=== PATIENT | female | born 1970 | race Caucasian/White ===

== ENCOUNTER → 2019-01-23 | Outpatient (CLI) | payer MEDICAID ==
[2019-01-23 14:27] LABS: CHOLESTEROL 202 mg/dL (<200); HDL CHOLESTEROL 88 mg/dL (>40); LDL CHOLESTEROL 94 mg/dL (<100); TC:HDL 2.3 Ratio (Not establshd); TRIGLYCERIDE 100 mg/dL (<150); VLDL 20 mg/dL (<40)
[2019-01-23 14:31] LABS: SERUM ASSESSMENT Clear
--- NOTE | 2019-01-23 17:09 | EXE ---
[place] [address] STRESS ECHOCARDIOGRAM Name: ABEBA ROCK Room: [facility]#: [id number] Admission: 01/23/19 Attend Phys: Georges Santos, Discharge: Date of : 70 Date of Service: 01/23/19 1709 Report #: [id number] THIS REPORT FOR: //name// APPROVED REPORT Study performed: 01/23/2019 16:00:47 Exam: Dobutamine Stress Echo Indication: Chest pain , Dyspnea Patient Location: Out-Patient Stress Nurse: Liza Ramos RN Supervising Physician: Trung Vivar MD Ht: 5 ft 3 in HR: 72 bpm BP: 110/62 mmHg Medical History Cardiac Risk Factors: Tobacco History (Former), FHX of CAD Procedure The patient underwent a Pharmacological Stress Test using Dobutamine. Blood pressure, heart rate, and EKG were monitored. An Echocardiogram was performed by air launch weapons technician in four stages in quad fashion. At peak stress, four selected images were obtained and placed side by side with resting images for comparison. Stress Test Details Stress Test: Pharmacological Stress Test using Dobutamine. Reason for pharmacologic stress test: physical limitation. HR Resting HR: 72 bpm Max Heart Rate (APMHR): 172 bpm Max HR Achieved: 150 bpm Target HR (85% APMHR): 146 bpm % of APMHR: 87 Recovery HR: 77 bpm HR response to stress: Normal HR response to stress BP Resting BP: 110/62 mmHg Max BP: 148/66 mmHg Recovery BP: 104/69 mmHg BP response to stress: Normal blood pressure response [place] [address] STRESS ECHOCARDIOGRAM Name: SHWETAABEBA Ramirez Room: [facility]#: [id number] Admission: 01/23/19 Attend Phys: Georges Santos, Discharge: Date of : 70 Date of Service: 01/23/19 1709 Report #: [id number] Resting ECG: Sinus Rhythm Stress ECG: Sinus Rhythm ST Change: Normal Arrhythmia: None Recovery ECG: Sinus Rhythm Recovery ST Change: Normal Recovery Arrhythmia: None Clinical Reason for Termination: Completed protocol Stress Symptoms: Leg Fatigue Exercise duration: 14 min 25 sec Stress ECG Conclusion negative stress ecg Pre-Stress Echo The resting Echocardiogram showed normal left ventricular contractility with an estimated Ejection Fraction of about 55-60%. Conclusion Clinical Response: Non-ischemic Exercise Capacity: not assessed Stress ECG Response: Non-ischemic Stress Echo Images: Non-ischemic Negative stress echo(pharmacologic) for ischemia or infarct. Other Information Study Quality: Good <Conclusion> Negative stress echo(pharmacologic) for ischemia or infarct. <ELECTRONICALLY SIGNED> By: Georges Santos MD, FACC 01/23/19 1709 170 08 Georges Santos MD, [facility] /INF
== END ==
LOC: M.CRD 01-03 11:00
PROVIDERS: Internal Medicine Cardiovascular Disease
DX: E78.5 Hyperlipidemia, unspecified (principal); R07.9 Chest pain, unspecified; Z87.891 Personal history of nicotine dependence; Z82.49 Family history of ischemic heart disease and other diseases of the circulatory system